=== PATIENT | male | born 1960 | race Caucasian/White ===

== ENCOUNTER 2019-10-29 11:25 | Emergency (ER) | payer OTHER, SELFPAY ==
[2019-10-29 12:19] VITALS: BP 118/75; PULSE 80; RESP 20; TEMP 36.7; O2SAT 95
--- NOTE | 2019-10-29 13:31 | ED.URI ---
HPI - URI/Sore Throat General Chief Complaint: Upper Respiratory Infection Stated Complaint: Possible sinus Infection/Jaw pain Time Seen by Provider: 10/29/19 13:31 Source: patient and RN notes reviewed Mode of arrival: ambulatory Limitations: no limitations History of Present Illness HPI Narrative: 59 year old male who presents to [facility] care with complaints of one week duration of sinus congestion and pain especially to left side of his face and to his left ear with clear nasal drainage. Patient states that he has been taking Mucinex,Tylenol and using Flonase nasal spray with no improvement. Patient states that he has some dry cough but denies any sore throat or any body aches. Patient also states that 5 days ago he was eating and his left jaw popped and he has had some discomfort to his jaw ever since, denies any dental pain or caries, is able to open mouth fully. Patient admits to long history of chronic sinus problems.Patient has long history of tobacco abuse. MD elicited complaint: cough, rhinorrhea, nasal congestion, sinus pain and other (ear ache) Pertinent past history: sinusitis Onset (ago): week(s) (1) Consistency: progressively worsening Severity: moderate Pain scale (0-10): 3 Description of mucous: clear Able to tolerate fluids by mouth: Yes Exacerbating factors: changing head position and leaning forward Relieving factors: nothing Associated symptoms: headache, rhinorrhea, nasal congestion, cough and other (left ear pain and jaw) Treatments prior to arrival: acetaminophen and other (Mucinex and flonase) Related Data Home Medications Medication Instructions Recorded Confirmed lactobacillus combination no.8 10/29/19 [Adult Probiotic] phenytoin sodium extended 300 mg PO DAILY 10/29/19 10/29/19 simvastatin 20 mg PO DAILY 10/29/19 10/29/19 Allergies Allergy/AdvReac Type Severity Reaction Status Date / Time No Known Allergies Allergy Verified 10/29/19 12:38 Review of Systems Review of Systems: Narrative: CONSTITUTIONAL: Denies fever, chills, or sweats. EYES: Denies visual changes, redness, or discharge. ENT: positive rhinorrhea, congestion, no sore throat, left otalgia.left facial pressure and discomfort left jaw CARDIOVASCULAR: Denies chest pain, palpitations, or edema. RESPIRATORY: Dry cough denies dyspnea. GASTROINTESTINAL: Denies abdominal pain, nausea, vomiting, or diarrhea. GENITOURINARY: Denies dysuria or hematuria. SKIN: Denies rash or itching. MUSCULOSKELETAL: Denies back pain, joint pain, or myalgia. NEUROLOGIC: left frontal headache,no numbness, or weakness. PSYCHIATRIC: Denies anxiety or depression. All systems reviewed & are unremarkable except as noted in HPI and below PMFSH Past Medical History Medical History (Updated 10/31/19 @ 10:32 by Karen Dawn NP) Fracture of right humerus Fracture of right wrist GERD (gastroesophageal reflux disease) Hyperlipidemia Kidney stones Seizures Surgical History Surgical History (Updated 10/31/19 @ 10:32 by Karen Dawn NP) H/O left inguinal hernia repair Social History Social History (Updated 10/31/19 @ 10:33 by Karen Dawn NP) Smoking packs per day: 1 Smoking cigarettes per day: 20.0 Years smoked: 35 Smoking pack-years: 35.00 Smoking status: Current every day smoker Living arrangements: with family Gender identity (if verbalized by the patient): Male Comments At time of signature, agree with nursing past medical, surgical, social history. There is no relevant family history pertinent to the presenting complaint Exam Narrative: Exam Narrative: GENERAL: Well-appearing, well-nourished, and in no acute distress. HEAD: Normocephalic, atraumatic. EYES: PERRLA and EOMI. ENT: Nares red edematous, clear rhinorrhea no epistaxis. Mucous membranes moist. TMs milky in appearance with dull light reflex no erythema noted voices earache to left ear, throat slightly red with no lesions post nasal drainage present NECK: [place]
== END 2019-10-29 14:01 | disposition home or self-care (01) ==
PROVIDERS: Emergency Provider Registered Nurse
DX: J06.9 Acute upper respiratory infection, unspecified (principal); J32.9 Chronic sinusitis, unspecified; F17.210 Nicotine dependence, cigarettes, uncomplicated; K21.9 Gastro-esophageal reflux disease without esophagitis; E78.5 Hyperlipidemia, unspecified; G40.909 Epilepsy, unspecified, not intractable, without status epilepticus
CPT/HCPCS: 99203; G0463